=== PATIENT | female | born 1990 | race Caucasian/White ===

== ENCOUNTER 2017-08-28 11:19 | Emergency (ER) | payer MEDICAID, OTHER ==
[2017-08-28] MEDS ORDERED: MECLIZINE 12.5 MG TAB PO (16:30)
[2017-08-28] MEDS: ONDANSETRON (ODT) 4 MG TAB ODT (16:34)
[2017-08-28] MEDS: ACETAMINOPHEN 500 MG TAB PO (16:34)
[2017-08-28 16:53] LABS: ADD UMIC YES; UR ASCORBIC ACID NEGATIVE (NEGATIVE); UR BILIRUBIN (Dip) NEGATIVE (NEGATIVE); UR BLOOD (Dip) NEGATIVE (NEGATIVE); UR CLARITY CLEAR (CLEAR); UR COLOR YELLOW (YELLOW); UR GLUCOSE (Dip) NEGATIVE (NEGATIVE); UR KETONES (Dip) NEGATIVE (NEGATIVE); UR LEUKOCYTE ESTERASE (Dip) TRACE Leu/ul (NEGATIVE); UR MUCUS FEW /HPF (NONE SEEN); UR NITRITE (Dip) NEGATIVE (NEGATIVE); UR RBC 2 /HPF (0-5); UR SPECIFIC GRAVITY (Dip) 1.025 (1.003-1.030); UR SQUAMOUS EPITHELIAL CELL FEW /HPF (FEW); UR TOTAL PROTEIN (Dip) NEGATIVE (NEGATIVE); UR UROBILINOGEN (Dip) 1+ mg/dL (NEGATIVE); UR WBC 5 /HPF (0-5)
== END 2017-08-28 17:39 | disposition home or self-care (01) ==
LOC: FTE 11:19
DX: R42 Dizziness and giddiness (principal)
CPT/HCPCS: 70450; 81001; 81025; 99284-25